=== PATIENT | male | born 1980 | race Caucasian/White ===

== ENCOUNTER 2020-03-09 11:28 | Emergency (ER) | payer OTHER ==
[~2020-03-09] VITALS: Ht 185.4 cm; Wt 104.5 kg
[~2020-03-09 11:28] MED LIST: FLEXERIL10 MG PO; IBUPROFEN800 MG PO; NORCO 325 MG-51 TAB PO; OXYCODONE5 M1 PO
[2020-03-09] MEDS ORDERED: PRILOSEC OTC20 MG PO (11:45)
[2020-03-09 13:01] LABS: EOS # 0.2 (0.04-0.40); EOS % 2.6 % (0.0-4.0); HEMATOCRIT 44.2 % (42.0-52.0); HEMOGLOBIN 14.9 g/dL (13.5-18.0); LYMPH# 1.6 (1.50-4.00); MEAN CELL VOLUME 91 fl (78-100); MEAN CORPUSCULAR HEMOGLOBIN 31 pg (27-31); MEAN CORPUSCULAR HGB CONC 34 g/dL (33-37); MEAN PLATELET VOLUME 11.3 fl (7.4-10.4); MONO # 0.5 (0.20-0.80); NEU # 3.9 (1.40-6.50); PLATELET COUNT 200 K/mm3 (130-400); RED BLOOD COUNT 4.88 M/mm3 (4.20-5.60); RED CELL DISTRIBUTION WIDTH 13.5 % (11.5-14.5); WHITE BLOOD COUNT 6.2 K/mm3 (4.8-10.8)
[2020-03-09 13:10] LABS: ALBUMIN 4.2 g/dL (3.5-5.0); POTASSIUM 4.1 mmol/L (3.5-5.1); SODIUM 141 mmol/L (136-145)
[2020-03-09 13:11] LABS: CALCIUM 9.1 mg/dL (8.3-10.5)
[2020-03-09 13:13] LABS: GLUCOSE 89 mg/dL (75-110); TOTAL PROTEIN 7.2 g/dL (6.4-8.3)
[2020-03-09 13:14] LABS: CARBON DIOXIDE 25 mmol/L (22-29); TOTAL BILIRUBIN 0.5 mg/dL (0.2-1.2)
[2020-03-09 13:18] LABS: AST-SGOT 20 U/L (5-34)
[2020-03-09 13:19] LABS: ALT/SGPT 26 U/L (0-55)
[2020-03-09 13:20] LABS: PARTIAL THROMBOPLASTIN TIME 22.8 SECONDS (21.0-32.0)
[2020-03-09 13:22] LABS: D-DIMER 0.23 mg/L FEU (0.15-0.50)
[2020-03-09 13:25] LABS: CKMB ISOENZYME 1.4 ng/mL (0.0-3.5)
[2020-03-09 13:26] LABS: TROPONIN-I < 0.03 ng/mL (<0.030)
[2020-03-09 15:13] VITALS: BP 144/94
== END 2020-03-09 15:13 | disposition home or self-care (01) ==
LOC: ED 11:28
PROVIDERS: Nurse Practitioner Family
DX: R06.02 Shortness of breath (principal); R07.89 Other chest pain; R53.81 Other malaise; R05 Cough; Z20.828 Contact with and (suspected) exposure to other viral communicable diseases
CPT/HCPCS: J1885; J7030